=== PATIENT | male | born 1990 | race Two or more races ===

== ENCOUNTER 2018-01-27 13:23 | Emergency (ER) | payer SELFPAY ==
[~2018-01-27] VITALS: Ht 185.4 cm; Wt 98.9 kg
[2018-01-27 16:15] VITALS: BP 132/74
== END 2018-01-27 16:45 | disposition home or self-care (01) ==
LOC: ER 13:29
DX: S31.21XA Laceration without foreign body of penis, initial encounter (principal); X58.XXXA Exposure to other specified factors, initial encounter; Y93.89 Activity, other specified; Y99.8 Other external cause status; Y92.89 Other specified places as the place of occurrence of the external cause